=== PATIENT | male | born 1995 | race Caucasian/White ===

== ENCOUNTER 2017-01-12 20:09 | Inpatient (IN) | payer OTHER ==
[~2017-01-12] VITALS: Ht 177.8 cm; Wt 72.2 kg
[2017-01-12 23:03] LABS: HEMOGLOBIN 14.9 gm/dl (14.0-17.5); RED BLOOD COUNT 5.18 M/UL (4.20-5.50); WHITE BLOOD COUNT 5.8 K/UL (4.5-11.0)
[2017-01-12 23:29] LABS: BUN/CREATININE RATIO 11 (0-10)
[2017-01-13] MEDS ORDERED: DOXYCYCLINE HY100 M2 PO (04:19)
[2017-01-13 12:43] LABS: WHITE BLOOD COUNT 5.3 K/UL (4.5-11.0)
[2017-01-13 12:44] LABS: RED BLOOD COUNT 4.54 M/UL (4.20-5.50)
[2017-01-13 13:32] LABS: BUN/CREATININE RATIO 10 (0-10)
[2017-01-14 06:09] LABS: HEMOGLOBIN 12.2 gm/dl (14.0-17.5); RED BLOOD COUNT 4.32 M/UL (4.20-5.50); WHITE BLOOD COUNT 5.2 K/UL (4.5-11.0)
[2017-01-14 06:18] LABS: BUN/CREATININE RATIO 7 (0-10)
[2017-01-15 04:44] LABS: HEMOGLOBIN 12.5 gm/dl (14.0-17.5); RED BLOOD COUNT 4.41 M/UL (4.20-5.50); WHITE BLOOD COUNT 5.7 K/UL (4.5-11.0)
[2017-01-15 05:14] LABS: BUN/CREATININE RATIO 6 (0-10)
[2017-01-16 05:25] LABS: HEMOGLOBIN 12.4 gm/dl (14.0-17.5); RED BLOOD COUNT 4.41 M/UL (4.20-5.50); WHITE BLOOD COUNT 5.8 K/UL (4.5-11.0)
[2017-01-16 05:41] LABS: BUN/CREATININE RATIO 8 (0-10)
--- NOTE | 2017-01-16 09:52 | NUR ---
PATIENT REFUSING INFLUENZA VACCINE. EDUCATED REGARDING IMPORTANCE OF RECIEVING VACCINE TO PREVENT THE FLU. PATIENT CONTINUES TO REFUSE. WILL CONTINUE TO MONITOR.
== END 2017-01-16 10:00 | disposition home or self-care (01) | DRG 442 ==
LOC: ER1 20:09 → M/S 01-13 00:40 → ZEROF 01-13 00:40 → M/S 01-13 03:14
PROVIDERS: Internal Medicine; Nurse Practitioner Family; Physician Assistant; Physician Assistant Medical; ADMIT Hospitalist
DX: B17.9 Acute viral hepatitis, unspecified (principal); D68.9 Coagulation defect, unspecified; R17 Unspecified jaundice; K76.0 Fatty (change of) liver, not elsewhere classified; E78.1 Pure hyperglyceridemia; D64.9 Anemia, unspecified; R74.0 Nonspecific elevation of levels of transaminase and lactic acid dehydrogenase [LDH]
CPT/HCPCS: 36415; 80053; 80061; 80074; 80307; 81001; 82085; 82140; 82150; 82248; 82390; 82533; 82550; 82728; 83540; 83550; 83605; 83615; 83690; 83735; 84100; 84403; 84443; 85025; 85027; 85610; 85730; 86039; 86140; 86235; 86403; 86618; 86644; 86880; 87040; 87086; 87390; 96361; 96374; 99284; C9113; J2405; J7050; Q9962